=== PATIENT | male | born 1985 | race Caucasian/White ===

== ENCOUNTER → 2016-11-14 | Outpatient (REF) | payer OTHER ==
[2016-11-14 13:41] LABS: FOLATE > 24.0 NG/ML; VITAMIN B12 LEVEL 853 PG/ML
[2016-11-17 00:08] LABS: Lyme Disease IgG/IgM Antibodie <0.91 ISR (0.00-0.90); Lyme Disease IgM Ab Quantitati <0.80 index (0.00-0.79)
== END ==
LOC: M LABNEURO 12:51
PROVIDERS: ATTEND Psychiatry & Neurology Neurology
DX: I63.9 Cerebral infarction, unspecified (principal); R20.2 Paresthesia of skin; D68.59 Other primary thrombophilia; L95.9 Vasculitis limited to the skin, unspecified

== ENCOUNTER → 2016-11-22 | Outpatient (REF) | payer OTHER ==
[2016-11-26 00:07] LABS: VITAMIN E LEVEL 11.8 mg/L (5.3-17.5)
[2016-11-28 08:06] LABS: PROTEIN C ANTIGEN 82 % (60-150); PROTEIN S ANTIGEN FREE 104 % (57-157); PROTEIN S ANTIGEN TOTAL 97 % (60-150)
== END ==
LOC: M LABNEURO 17:16
PROVIDERS: ATTEND Psychiatry & Neurology Neurology
DX: I63.9 Cerebral infarction, unspecified (principal); R20.2 Paresthesia of skin; D68.59 Other primary thrombophilia; L95.9 Vasculitis limited to the skin, unspecified

== ENCOUNTER → 2017-03-22 | Outpatient (REF) | payer OTHER | LOC: M LABNEURO 15:35 | PROVIDERS: ATTEND Psychiatry & Neurology Neurology | DX: G45.9 Transient cerebral ischemic attack, unspecified (principal) ==

== ENCOUNTER → 2017-04-27 | Outpatient (REF) | payer OTHER ==
[2017-05-07 08:23] LABS: MISCELLANEOUS TEST LAB See Separate Report
== END ==
LOC: M LAB REF 12:30
PROVIDERS: ATTEND Internal Medicine Medical Oncology
DX: R79.1 Abnormal coagulation profile (principal)